=== PATIENT | female | born 1990 | race Caucasian/White ===

== ENCOUNTER → 2024-05-23 18:53 | Outpatient (REF) | payer BC, SELFPAY | LOC: MRI 18:53 | PROVIDERS: ATTENDING PHYSICIAN Nurse Practitioner | DX: R20.0 Anesthesia of skin (principal); Z82.3 Family history of stroke; G43.109 Migraine with aura, not intractable, without status migrainosus | CPT/HCPCS: 70544; 70553; A9575 ==